=== PATIENT | male | born 1995 | race Caucasian/White ===

== ENCOUNTER 2016-05-14 10:06 | Day surgery (SDC) | payer BC ==
--- NOTE | 2016-05-14 11:24 | RADRPT ---
EXAM DATE/TIME: 05/14/2016 00:00 [facility] COMPARISON: No previous studies available for comparison. INDICATIONS : Left neck mass. MEDICAL HISTORY : Left neck mass. SURGICAL HISTORY : None. ENCOUNTER: Initial ACUITY: 3 weeks PAIN SCORE: 0/10 LOCATION: Left neck. AREA EVALUATED: Not scanned FINDINGS: The patient took a nutritional supplement that has anticoagulant fracture. He is to discontinue this for 3 gauge and rescheduled for Tuesday or Tuesday of next week. Thanks for the consultation. Will Bartlett MD FACR on May 14, 2016 at 11:21 Board Certified Radiologist. This report was verified electronically.
== END 2016-05-14 10:10 | disposition home or self-care (01) ==
LOC: HRAD 10:06 → HRIP 10:09 → HRAD 10:10
PROVIDERS: ATTEND Otolaryngology Otolaryngology/Facial Plastic Surgery
DX: R22.1 Localized swelling, mass and lump, neck (principal)

== ENCOUNTER 2016-05-17 12:47 | Day surgery (SDC) | payer BC ==
[2016-05-17 13:26] VITALS: BP 122/80; PULSE 89; RESP 16; TEMP 98.4; O2SAT 99
[2016-05-17] MEDS ORDERED: LIDOCAINE HCL 1% PF 30 ML VIAL ONE (14:13)
[2016-05-17] MEDS ORDERED: SODIUM BICARBONATE 8.4% INJ 50 ML ONE (14:13)
[2016-05-17 14:15] VITALS: BP 136/71; PULSE 88; RESP 18; TEMP 98.1; O2SAT 98
[2016-05-17 14:30] VITALS: BP 140/70; PULSE 79; RESP 18; O2SAT 100
--- NOTE | 2016-05-17 16:52 | RADRPT ---
EXAM DATE/TIME: 05/17/2016 13:27 [facility] COMPARISON: No previous studies available for comparison. INDICATIONS : Left neck mass. MEDICAL HISTORY : Tobacco use. Left palpable neck mass. SURGICAL HISTORY : None. ENCOUNTER: Initial ACUITY: 4 - 6 months PAIN SCORE: 2/10 LOCATION: Left neck ORGAN: Left neck SPECIMENS: Five fine needle aspirate(s) submitted for pathologic evaluation. DEVICE: 18 gauge needle Post procedure scanning reveals no hematoma or other complication. The possibility does exist that the tissue obtained will be non-diagnostic. If the sample is non-adry gnostic a repeat biopsy or surgical biopsy may need to be performed. TECHNIQUE: 1. Ultrasound guidance for needle biopsy. 2. Needle biopsy/aspiration. The risks, benefits, and alternatives to ultrasound guided needle biopsy were explained to the patien t in detail including the risk of bleeding and infection. Written and verbal informed consent was ob tained. With the patient on the ultrasound table, images were obtained. Overlying skin was prepped and drape d in the usual sterile fashion and Lidocaine was utilized as a local anesthetic. A needle was advanced into the identified target and 2 attempted core biopsies were obtained. Both of these contained thick mucinous material but no solid tissue. Therefore, a 22 gauge needle was advanc ed into the collection with ultrasound guidance. Approximately 3 cc of bloody, purulent fluid was asp irated. This was placed in a sterile saline container for culture and sensitivity. A second, 18 gauge needle was then advanced into the collection and an additional 9 cc of bloody, purulent material was aspirated. This was also sent for analysis. The patient tolerated the procedure well and left the ultrasound suite in stable condition. CONCLUSION: Uncomplicated ultrasound guided needle biopsy/aspiration as above. Gera Saenz MD on May 17, 2016 at 16:48 Board Certified Radiologist. This report was verified electronically.
== END 2016-05-17 14:35 | disposition home or self-care (01) ==
LOC: HRAD 12:47 → HRIP 12:55 → HRAD 14:35
PROVIDERS: ATTEND Otolaryngology Otolaryngology/Facial Plastic Surgery
DX: R22.1 Localized swelling, mass and lump, neck (principal); Z72.0 Tobacco use
CPT/HCPCS: 38505; 76942; 87070; 87205; 88305